=== PATIENT | female | born 1985 | race Caucasian/White ===

== ENCOUNTER 2022-11-06 12:16 | Emergency (ER) | payer SELFPAY ==
[~2022-11-06] VITALS: Ht 160 cm; Wt 70.5 kg
[~2022-11-06 12:16] MED LIST: AMOXICILLIN AND1 TA2 PO; CIPRODEX 0.3%-7.5 ML OT
[2022-11-06 13:47] VITALS: BP 120/79
== END 2022-11-06 13:18 | disposition home or self-care (01) ==
LOC: ED 12:16
DX: M26.629 Arthralgia of temporomandibular joint, unspecified side (principal); H65.01 Acute serous otitis media, right ear; Z88.6 Allergy status to analgesic agent; Z28.310 Unvaccinated for COVID-19
CPT/HCPCS: J1040

== ENCOUNTER 2022-12-08 02:56 | Emergency (ER) | payer SELFPAY ==
[~2022-12-08] VITALS: Ht 160 cm; Wt 72.7 kg
[2022-12-08 03:41] LABS: BASO # 0.03 K/mm3 (0.02-0.10); EOS # 0.23 K/mm3 (0.04-0.40); EOS % 2.6 % (1.0-5.0); HEMATOCRIT 32.1 % (37.0-47.0); HEMOGLOBIN 9.7 g/dL (12.5-16.0); LYMPH# 3.28 K/mm3 (1.50-4.00); MEAN CELL VOLUME 76 fl (78-100); MEAN CORPUSCULAR HEMOGLOBIN 23 pg (27-31); MEAN CORPUSCULAR HGB CONC 30 g/dL (33-37); MEAN PLATELET VOLUME 8.9 fl (7.4-10.4); MONO # 0.66 K/mm3 (0.20-0.80); NEU # 4.56 K/mm3 (1.40-6.50); PLATELET COUNT 394 K/mm3 (130-400); RED BLOOD COUNT 4.22 M/mm3 (4.10-5.30); RED CELL DISTRIBUTION WIDTH 19.5 % (11.5-14.5); WHITE BLOOD COUNT 8.8 K/mm3 (4.8-10.8)
[2022-12-08 03:57] LABS: ALBUMIN 3.9 g/dL (3.5-5.0); POTASSIUM 3.7 mmol/L (3.5-5.1)
[2022-12-08 03:59] LABS: CALCIUM 8.6 mg/dL (8.3-10.5)
[2022-12-08 04:00] LABS: TOTAL PROTEIN 6.7 g/dL (6.4-8.3)
[2022-12-08 04:02] LABS: TOTAL BILIRUBIN 0.3 mg/dL (0.2-1.2)
[2022-12-08 04:04] LABS: URINE COLOR YELLOW
[2022-12-08 04:05] LABS: URINE APPEARANCE HAZY
[2022-12-08 04:06] LABS: PH-URINE 6.5 (5.0 - 8.0); URINE BILIRUBIN NEGATIVE (NEGATIVE); URINE BLOOD NEGATIVE (NEGATIVE); URINE GLUCOSE NEGATIVE (NEGATIVE); URINE KETONE NEGATIVE (NEGATIVE); URINE LEUKOCYTE ESTERASE TRACE (NEGATIVE); URINE NITRATE NEGATIVE (NEGATIVE); URINE PROTEIN(semi-quant) TRACE (NEGATIVE); URINE UROBILINOGEN NORMAL (NORMAL)
[2022-12-08 04:11] LABS: URINE MUCUS PRESENT (NOT PRESENT); URINE WBC 0-1 /hpf (0-3)
[2022-12-08] MEDS ORDERED: LIDOCAINE PAIN1 EACH TP (05:14)
[2022-12-08] MEDS ORDERED: CYCLOBENZAPRINE10 M1 PO (05:14)
[2022-12-08 05:30] VITALS: BP 107/73
== END 2022-12-08 05:31 | disposition home or self-care (01) ==
LOC: ED 02:56
PROVIDERS: Physician Assistant
DX: S30.1XXA Contusion of abdominal wall, initial encounter (principal); D64.9 Anemia, unspecified; N83.12 Corpus luteum cyst of left ovary; N83.11 Corpus luteum cyst of right ovary; I87.8 Other specified disorders of veins; Z88.6 Allergy status to analgesic agent; Z88.5 Allergy status to narcotic agent; Z28.310 Unvaccinated for COVID-19; W01.0XXA Fall on same level from slipping, tripping and stumbling without subsequent striking against object, initial encounter
CPT/HCPCS: J1200; J2405; J2930; J3010